=== PATIENT | male | born 1955 | race Caucasian/White ===

== ENCOUNTER 2017-05-08 17:31 | Inpatient (IN) | payer MEDICAID ==
[~2017-05-08] VITALS: Ht 172.7 cm; Wt 70.4 kg
[~2017-05-08 17:31] MED LIST: NO HOME MEDS
[2017-05-08] MEDS ORDERED: ipratropium/albuterol 3ml nebule NEB ONE (18:50)
[2017-05-08] MEDS ORDERED: normal saline 1000ML IV soln IVB ONE (18:50)
[2017-05-08 19:56] LABS: BASOPHILS # (AUTO) 0.1 X10'3 (0-0.2); BASOPHILS % (AUTO) 0.8 % (0-1); EOSINOPHILS # (AUTO) 0.3 X10'3 (0-0.9); EOSINOPHILS % (AUTO) 3.9 % (0-6); HEMOGLOBIN 11.3 g/dl (14.0-17.9); LYMPHOCYTES # (AUTO) 3.5 X10'3 (1.1-4.8); MEAN CORPUSCULAR HEMOGLOBIN 37.8 PG (27.0-31.0); MEAN CORPUSCULAR HGB CONC 34.3 % (33.0-36.5); MEAN CORPUSCULAR VOLUME 110.3 FL (78-98); MEAN PLATELET VOLUME 7.1 FL (7.4-10.4); MONOCYTES # (AUTO) 0.9 X10'3 (0-0.9); MONOCYTES % (AUTO) 10.2 % (2-12); NEUTROPHILS # (AUTO) 3.9 X10'3 (1.8-7.7); NEUTROPHILS % (AUTO) 45.1 % (42-75); PLATELET COUNT 206 X10'3 (140-440); RED BLOOD COUNT 2.99 X10'6 (4.70-6.10); RED CELL DISTRIBUTION WIDTH 17.4 % (11.5-14.5); WHITE BLOOD COUNT 8.8 X10'3 (4.5-11.0)
[2017-05-08 20:05] LABS: INR 1.1 INR; PARTIAL THROMBOPLASTIN TIME 28 SECONDS (22-32); PROTHROMBIN TIME 11.4 SECONDS (9.0-12.0)
[2017-05-08 20:40] LABS: LACTIC SEPSIS 4.1 MMOL/L (0.4-2.0)
[2017-05-08] MEDS ORDERED: cefTRIAXone 1g/NS 100ml IVPB 100 ML IV ONE (20:55)
[2017-05-08] MEDS ORDERED: azithromycin 250mg tablet PO ONE (20:55)
[2017-05-08 20:56] LABS: ALANINE AMINOTRANSFERASE 20 U/L (12-78); ALBUMIN 1.9 G/DL (3.4-5.0); ALBUMIN/GLOBULIN RATIO 0.3 (1.1-1.5); ALKALINE PHOSPHATASE 156 IU/L (46-116); ANION GAP 10 (8-16); ASPARTATE AMINO TRANSFERASE 69 U/L (10-37); BILIRUBIN,TOTAL 1.5 MG/DL (0.1-1.0); BLOOD UREA NITROGEN 6 MG/DL (7-18); BUN/CREATININE RATIO 9.7 (5.4-32.0); CALCIUM 7.8 MG/DL (8.5-10.1); CHLORIDE 95 MMOL/L (99-107); CREATININE 0.62 MG/DL (0.60-1.10); ETHANOL 0.039 GM/DL (0.0-0.010); GLUCOSE 116 MG/DL (70-104); MAGNESIUM 1.1 MG/DL (1.5-2.4); PHOSPHORUS 2.7 MG/DL (2.3-4.5); SODIUM 138 MMOL/L (135-145); TOTAL CARBON DIOXIDE 32.9 MMOL/L (24-32); TOTAL PROTEIN 7.4 G/DL (6.4-8.2); eGFR > 90 ML/MIN
[2017-05-08 21:00] LABS: POTASSIUM 1.7 MMOL/L (3.5-5.1)
[2017-05-08] MEDS: Potassium Cl 40 MEQ in NS 500 ML IV SCH (22:03)
[2017-05-08] MEDS ORDERED: magnesium 2GM in 50ml NS 50 ML IV ONE (22:45)
[2017-05-08] MEDS ORDERED: LORazepam 2 mg/ml vial IV PRN (23:20)
[2017-05-08] MEDS ORDERED: thiamine inj. 100 MG in normal saline 100ml IV soln 100 ML IV ONE (23:20)
[2017-05-08] MEDS ORDERED: magnesium hydroxide 30ml (MOM) UD suspension PO PRN (23:20)
[2017-05-08] MEDS ORDERED: mag hydrox/Alum hydrox/simeth 30ml oral suspension PO PRN (23:20)
[2017-05-08] MEDS ORDERED: potassium Cl 40MEQ/NS 500ml 500 ML IV PRN ×2 (23:20)
[2017-05-08] MEDS ORDERED: ondansetron/PF 4mg/2ml inj IV PRN (23:20)
[2017-05-09] VITALS (7 sets, daily range): BP systolic 95–138; BP diastolic 62–89
[2017-05-09] MEDS ORDERED: normal saline 1000ml 1,000 ML IVB ONE ×2 (01:04→01:09)
[2017-05-09] MEDS ORDERED: magnesium 2GM in 50ml NS 50 ML IV ONE (01:05)
[2017-05-09] MEDS: potassium Cl 20 mEq SR tablet PO PRN ×5 (01:25→21:09)
[2017-05-09] MEDS ORDERED: thiamine 100mg/ml 2ml inj. IV ONE (01:35)
[2017-05-09] MEDS: Potassium Cl 40 MEQ in NS 500 ML IV SCH (02:05)
[2017-05-09] MEDS ORDERED: CLON-529 PO (03:08)
[2017-05-09 06:24] LABS: BASOPHILS % (AUTO) 0.4 % (0-1); EOSINOPHILS # (AUTO) 0.3 X10'3 (0-0.9); EOSINOPHILS % (AUTO) 3.3 % (0-6); HEMATOCRIT 30.9 % (42.0-52.0); HEMOGLOBIN 10.5 g/dl (14.0-17.9); LYMPHOCYTES # (AUTO) 1.2 X10'3 (1.1-4.8); LYMPHOCYTES % (AUTO) 14.8 % (21-51); MEAN CORPUSCULAR HEMOGLOBIN 37.4 PG (27.0-31.0); MEAN CORPUSCULAR HGB CONC 33.9 % (33.0-36.5); MEAN CORPUSCULAR VOLUME 110.3 FL (78-98); MEAN PLATELET VOLUME 7.2 FL (7.4-10.4); MONOCYTES # (AUTO) 0.7 X10'3 (0-0.9); MONOCYTES % (AUTO) 8.7 % (2-12); NEUTROPHILS # (AUTO) 5.9 X10'3 (1.8-7.7); NEUTROPHILS % (AUTO) 72.8 % (42-75); PLATELET COUNT 192 X10'3 (140-440)
[2017-05-09 07:04] LABS: ALANINE AMINOTRANSFERASE 22 U/L (12-78); ALBUMIN 1.8 G/DL (3.4-5.0); ALBUMIN/GLOBULIN RATIO 0.4 (1.1-1.5); ALKALINE PHOSPHATASE 151 IU/L (46-116); ANION GAP 6 (8-16); ASPARTATE AMINO TRANSFERASE 67 U/L (10-37); BLOOD UREA NITROGEN 5 MG/DL (7-18); BUN/CREATININE RATIO 7.7 (5.4-32.0); CALCIUM 7.3 MG/DL (8.5-10.1); CHLORIDE 103 MMOL/L (99-107); CREATININE 0.65 MG/DL (0.60-1.10); GLUCOSE 124 MG/DL (70-104); MAGNESIUM 2.1 MG/DL (1.5-2.4); SODIUM 142 MMOL/L (135-145); TOTAL CARBON DIOXIDE 33.2 MMOL/L (24-32); TOTAL PROTEIN 6.7 G/DL (6.4-8.2); TROPONIN I 0.04 NG/ML (0.0-0.05); eGFR > 90 ML/MIN
[2017-05-09] MEDS: thiamine 100mg tablet PO SCH (07:47)
[2017-05-09] MEDS: folic acid 1mg tablet PO SCH (07:47)
[2017-05-09] MEDS: normal saline 1000ml 1,000 ML IV SCH ×2 (07:47→12:38)
[2017-05-09] MEDS: multivitamins, therapeutics tablet PO SCH (07:47)
[2017-05-09 07:53] LABS: POTASSIUM 2.5 MMOL/L (3.5-5.1)
[2017-05-09] MEDS ORDERED: CefTRIAXone/dextrose 2GM bag 50 ML IV SCH (08:00)
[2017-05-09 11:23] LABS: C DIFF ANTIGEN NEGATIVE (NEGATIVE); C DIFF SPECIMEN=DIARRHEA? ACCEPTABLE; C DIFFICILE TOXINS A&B NEGATIVE (Neg)
[2017-05-09] MEDS: azithromycin/NS 500mg/250ml 250 ML IV SCH (21:07)
[2017-05-10] MEDS: potassium Cl 20 mEq SR tablet PO PRN ×4 (00:52→19:39)
[2017-05-10] MEDS: normal saline 1000ml 1,000 ML IV SCH ×2 (01:58→13:01)
[2017-05-10 03:00] VITALS: BP 128/88
[2017-05-10 06:00] VITALS: BP 139/103
[2017-05-10 06:38] LABS: BASOPHILS % (AUTO) 0.5 % (0-1); EOSINOPHILS # (AUTO) 0.4 X10'3 (0-0.9); EOSINOPHILS % (AUTO) 5.8 % (0-6); HEMATOCRIT 30.6 % (42.0-52.0); HEMOGLOBIN 10.2 g/dl (14.0-17.9); LYMPHOCYTES # (AUTO) 1.6 X10'3 (1.1-4.8); LYMPHOCYTES % (AUTO) 20.6 % (21-51); MEAN CORPUSCULAR HEMOGLOBIN 37.1 PG (27.0-31.0); MEAN CORPUSCULAR HGB CONC 33.2 % (33.0-36.5); MEAN CORPUSCULAR VOLUME 111.5 FL (78-98); MEAN PLATELET VOLUME 7.4 FL (7.4-10.4); MONOCYTES # (AUTO) 0.7 X10'3 (0-0.9); MONOCYTES % (AUTO) 9.7 % (2-12); NEUTROPHILS # (AUTO) 4.8 X10'3 (1.8-7.7); NEUTROPHILS % (AUTO) 63.4 % (42-75); PLATELET COUNT 202 X10'3 (140-440); RED BLOOD COUNT 2.74 X10'6 (4.70-6.10); WHITE BLOOD COUNT 7.6 X10'3 (4.5-11.0)
[2017-05-10 07:42] LABS: ALANINE AMINOTRANSFERASE 29 U/L (12-78); ALBUMIN 1.8 G/DL (3.4-5.0); ALBUMIN/GLOBULIN RATIO 0.4 (1.1-1.5); ALKALINE PHOSPHATASE 154 IU/L (46-116); ANION GAP 8 (8-16); ASPARTATE AMINO TRANSFERASE 87 U/L (10-37); BILIRUBIN,TOTAL 1.4 MG/DL (0.1-1.0); BLOOD UREA NITROGEN 3 MG/DL (7-18); BUN/CREATININE RATIO 4.9 (5.4-32.0); CHLORIDE 107 MMOL/L (99-107); CREATININE 0.61 MG/DL (0.60-1.10); GLUCOSE 98 MG/DL (70-104); MAGNESIUM 1.6 MG/DL (1.5-2.4); POTASSIUM 3.2 MMOL/L (3.5-5.1); SODIUM 144 MMOL/L (135-145); TOTAL CARBON DIOXIDE 29.5 MMOL/L (24-32); TOTAL PROTEIN 6.7 G/DL (6.4-8.2); eGFR > 90 ML/MIN
[2017-05-10 07:58] LABS: ANISOCYTOSIS 1+; PLATELET ESTIMATE NORMAL
[2017-05-10 07:59] LABS: POLYCHROMASIA FEW; TARGET CELLS 2+
[2017-05-10] MEDS: LACTOBACILLUS RHAMNOSUS GG 15 billion unit sprinkle caps PO SCH (09:08)
[2017-05-10] MEDS: thiamine 100mg tablet PO SCH (09:08)
[2017-05-10] MEDS: multivitamins, therapeutics tablet PO SCH (09:08)
[2017-05-10] MEDS: folic acid 1mg tablet PO SCH (09:09)
[2017-05-10] MEDS: CefTRIAXone 2gm/D5W 50ml ADVTG 50 ML IV SCH (09:17)
[2017-05-10] MEDS ORDERED: FLU VACC QS2017-18 36MOS UP/PF 60 MCG/0.5 ML SYRINGE IMVAC ONE (10:00)
[2017-05-10 11:00] VITALS: BP 126/84
[2017-05-10 15:00] VITALS: BP 123/80
[2017-05-10 18:00] VITALS: BP 123/72
[2017-05-10] MEDS ORDERED: albuterol 2.5 MG/3 ML nebule NEB PRN (20:00)
[2017-05-10] MEDS ORDERED: ibuprofen tablet 400 MG TABLET PO ONE (20:15)
[2017-05-10] MEDS: azithromycin/NS 500mg/250ml 250 ML IV SCH (21:23)
[2017-05-10 22:00] VITALS: BP 124/75
[2017-05-11 02:00] VITALS: BP 128/79
[2017-05-11] MEDS: normal saline 1000ml 1,000 ML IV SCH (03:59)
[2017-05-11 06:00] VITALS: BP 126/75
[2017-05-11 06:15] LABS: BASOPHILS # (AUTO) 0.1 X10'3 (0-0.2); BASOPHILS % (AUTO) 0.9 % (0-1); EOSINOPHILS # (AUTO) 0.4 X10'3 (0-0.9); EOSINOPHILS % (AUTO) 5.7 % (0-6); HEMATOCRIT 31.4 % (42.0-52.0); HEMOGLOBIN 10.4 g/dl (14.0-17.9); LYMPHOCYTES # (AUTO) 1.7 X10'3 (1.1-4.8); LYMPHOCYTES % (AUTO) 24.1 % (21-51); MEAN CORPUSCULAR HEMOGLOBIN 37.2 PG (27.0-31.0); MEAN CORPUSCULAR VOLUME 112.6 FL (78-98); MEAN PLATELET VOLUME 7.3 FL (7.4-10.4); MONOCYTES # (AUTO) 0.6 X10'3 (0-0.9); MONOCYTES % (AUTO) 8.5 % (2-12); NEUTROPHILS # (AUTO) 4.4 X10'3 (1.8-7.7); NEUTROPHILS % (AUTO) 60.8 % (42-75); PLATELET COUNT 220 X10'3 (140-440); RED BLOOD COUNT 2.79 X10'6 (4.70-6.10); RED CELL DISTRIBUTION WIDTH 17.8 % (11.5-14.5); WHITE BLOOD COUNT 7.2 X10'3 (4.5-11.0)
[2017-05-11 07:00] LABS: ALANINE AMINOTRANSFERASE 30 U/L (12-78); ALBUMIN 1.8 G/DL (3.4-5.0); ALBUMIN/GLOBULIN RATIO 0.4 (1.1-1.5); ALKALINE PHOSPHATASE 163 IU/L (46-116); ANION GAP 4 (8-16); ASPARTATE AMINO TRANSFERASE 92 U/L (10-37); BILIRUBIN,TOTAL 1.2 MG/DL (0.1-1.0); BLOOD UREA NITROGEN 1 MG/DL (7-18); CALCIUM 7.4 MG/DL (8.5-10.1); CHLORIDE 105 MMOL/L (99-107); GLUCOSE 87 MG/DL (70-104); MAGNESIUM 1.5 MG/DL (1.5-2.4); POTASSIUM 3.2 MMOL/L (3.5-5.1); SODIUM 142 MMOL/L (135-145); TOTAL CARBON DIOXIDE 32.9 MMOL/L (24-32); TOTAL PROTEIN 6.8 G/DL (6.4-8.2); eGFR > 90 ML/MIN
[2017-05-11] MEDS: LACTOBACILLUS RHAMNOSUS GG 15 billion unit sprinkle caps PO SCH (07:55)
[2017-05-11] MEDS: multivitamins, therapeutics tablet PO SCH (07:55)
[2017-05-11] MEDS: folic acid 1mg tablet PO SCH (07:55)
[2017-05-11] MEDS: thiamine 100mg tablet PO SCH (07:55)
[2017-05-11] MEDS: potassium Cl 20 mEq SR tablet PO PRN (07:55)
[2017-05-11] MEDS: CefTRIAXone 2gm/D5W 50ml ADVTG 50 ML IV SCH (07:55)
[2017-05-11 09:08] LABS: ANISOCYTOSIS 2+; HYPOCHROMASIA 1+; PLATELET ESTIMATE NORMAL; POLYCHROMASIA 1+; STOMATOCYTES 1+; TARGET CELLS 1+
[2017-05-11] MEDS ORDERED: potassium Cl 20 mEq SR tablet PO ONE (09:45)
[2017-05-11 11:00] VITALS: BP 118/79
[2017-05-11 15:00] VITALS: BP 109/75
[2017-05-11 18:30] VITALS: BP 128/92
[2017-05-11] MEDS: azithromycin/NS 500mg/250ml 250 ML IV SCH (21:43)
[2017-05-11 22:30] VITALS: BP 127/83
[2017-05-12 02:30] VITALS: BP 107/54
[2017-05-12 06:00] VITALS: BP 118/80
[2017-05-12 06:08] LABS: BASOPHILS # (AUTO) 0.1 X10'3 (0-0.2); BASOPHILS % (AUTO) 0.7 % (0-1); EOSINOPHILS # (AUTO) 0.4 X10'3 (0-0.9); EOSINOPHILS % (AUTO) 5.7 % (0-6); HEMATOCRIT 30.6 % (42.0-52.0); HEMOGLOBIN 10.1 g/dl (14.0-17.9); LYMPHOCYTES # (AUTO) 1.8 X10'3 (1.1-4.8); LYMPHOCYTES % (AUTO) 23.3 % (21-51); MEAN CORPUSCULAR HEMOGLOBIN 36.9 PG (27.0-31.0); MEAN CORPUSCULAR HGB CONC 33.2 % (33.0-36.5); MEAN CORPUSCULAR VOLUME 111.4 FL (78-98); MEAN PLATELET VOLUME 7.1 FL (7.4-10.4); MONOCYTES # (AUTO) 0.8 X10'3 (0-0.9); MONOCYTES % (AUTO) 9.9 % (2-12); NEUTROPHILS # (AUTO) 4.7 X10'3 (1.8-7.7); NEUTROPHILS % (AUTO) 60.4 % (42-75); PLATELET COUNT 231 X10'3 (140-440); RED BLOOD COUNT 2.75 X10'6 (4.70-6.10); RED CELL DISTRIBUTION WIDTH 17.7 % (11.5-14.5); WHITE BLOOD COUNT 7.8 X10'3 (4.5-11.0)
[2017-05-12 06:49] LABS: ALANINE AMINOTRANSFERASE 32 U/L (12-78); ALBUMIN 1.7 G/DL (3.4-5.0); ALBUMIN/GLOBULIN RATIO 0.3 (1.1-1.5); ALKALINE PHOSPHATASE 173 IU/L (46-116); ANION GAP 4 (8-16); ASPARTATE AMINO TRANSFERASE 80 U/L (10-37); BLOOD UREA NITROGEN 2 MG/DL (7-18); BUN/CREATININE RATIO 3.7 (5.4-32.0); CALCIUM 7.4 MG/DL (8.5-10.1); CHLORIDE 104 MMOL/L (99-107); CREATININE 0.54 MG/DL (0.60-1.10); GLUCOSE 88 MG/DL (70-104); MAGNESIUM 1.4 MG/DL (1.5-2.4); POTASSIUM 3.3 MMOL/L (3.5-5.1); SODIUM 139 MMOL/L (135-145); TOTAL CARBON DIOXIDE 31.5 MMOL/L (24-32); TOTAL PROTEIN 6.7 G/DL (6.4-8.2); eGFR > 90 ML/MIN
[2017-05-12 07:37] LABS: ANISOCYTOSIS 2+; PLATELET ESTIMATE NORMAL
[2017-05-12 07:38] LABS: POLYCHROMASIA 2+; STOMATOCYTES 1+
[2017-05-12] MEDS: thiamine 100mg tablet PO SCH (08:01)
[2017-05-12] MEDS: multivitamins, therapeutics tablet PO SCH (08:01)
[2017-05-12] MEDS: folic acid 1mg tablet PO SCH (08:01)
[2017-05-12] MEDS: LACTOBACILLUS RHAMNOSUS GG 15 billion unit sprinkle caps PO SCH (08:01)
[2017-05-12] MEDS: CefTRIAXone 2gm/D5W 50ml ADVTG 50 ML IV SCH (08:06)
[2017-05-12 11:00] VITALS: BP 138/93
[2017-05-12] MEDS ORDERED: THI100T PO (12:13)
[2017-05-12] MEDS ORDERED: LEVO750T21 PO (12:13)
[2017-05-12] MEDS ORDERED: FOLI1TAB16 PO (12:13)
[2017-05-12] MEDS ORDERED: SPIR25TA PO (12:16)
[2017-05-12] MEDS ORDERED: MAGN400C PO (12:20)
[2017-05-12] MEDS ORDERED: POTA20TA19 PO (12:20)
[2017-05-12 15:00] VITALS: BP 135/97
== END 2017-05-12 18:15 | disposition home or self-care (01) | DRG 139 ==
LOC: ER 17:31 → ED HOLD 23:18 → PCU 3S 05-09 00:04
PROVIDERS: ADMIT Internal Medicine; ATTEND Internal Medicine
DX: J18.9 Pneumonia, unspecified organism (principal); G93.41 Metabolic encephalopathy; K70.31 Alcoholic cirrhosis of liver with ascites; E83.42 Hypomagnesemia; E87.6 Hypokalemia; D64.9 Anemia, unspecified; F17.200 Nicotine dependence, unspecified, uncomplicated; I10 Essential (primary) hypertension; M19.90 Unspecified osteoarthritis, unspecified site; Z74.01 Bed confinement status; Z86.73 Personal history of transient ischemic attack (TIA), and cerebral infarction without residual deficits; F10.129 Alcohol abuse with intoxication, unspecified; Z23 Encounter for immunization
CPT/HCPCS: 36415; 70450; 71045; 74018; 80053; 80320; 82140; 82948; 83605; 83735; 84100; 84132; 84443; 84484; 85025; 85610; 85730; 87040; 87045; 87046; 87070; 87324; 87449; 93005; 94640; 94760; 96361; 96365; 97110; 97530; 99285; A4649; A6212; A6213; J0456; J0696; J3411; J3475; J3480; J7030; Q2037

== ENCOUNTER 2020-02-04 18:48 | Emergency (ER) | payer MEDICARE, MEDICAID ==
[~2020-02-04] VITALS: Ht 172.7 cm; Wt 67.8 kg
[~2020-02-04 18:48] MED LIST changes: +ALBU8.5H8 INH; +FOLI0.4T14 PO; +FURO20TA4 PO; +HYDR-4353 PO; +LACT10SO PO; +LEVO100T9 PO; +LORA-269 PO; +MULT-25 PO; -NO HOME MEDS; +POTA10CA44 PO; +PROP10TA10 PO; +thiamine tablet PO
[2020-02-04 19:29] LABS: BASOPHILS % (AUTO) 0.2 % (0-1); EOSINOPHILS # (AUTO) 0.3 X10'3 (0-0.9); EOSINOPHILS % (AUTO) 2.3 % (0-6); HEMATOCRIT 32.4 % (42.0-52.0); LYMPHOCYTES # (AUTO) 1.3 X10'3 (1.1-4.8); LYMPHOCYTES % (AUTO) 11.7 % (21-51); MEAN CORPUSCULAR HEMOGLOBIN 38.8 PG (27.0-31.0); MEAN CORPUSCULAR HGB CONC 33.8 g/dL (33.0-36.5); MEAN CORPUSCULAR VOLUME 114.7 FL (78-98); MEAN PLATELET VOLUME 7.8 FL (7.4-10.4); MONOCYTES # (AUTO) 1.2 X10'3 (0-0.9); MONOCYTES % (AUTO) 10.5 % (2-12); NEUTROPHILS # (AUTO) 8.5 X10'3 (1.8-7.7); NEUTROPHILS % (AUTO) 75.3 % (42-75); PLATELET COUNT 283 X10'3 (140-440); RED BLOOD COUNT 2.82 X10'6 (4.70-6.10); RED CELL DISTRIBUTION WIDTH 15.4 % (11.5-14.5); WHITE BLOOD COUNT 11.3 X10'3 (4.5-11.0)
--- NOTE | 2020-02-04 19:41 | NUR ---
heraclio [phone] on phone. pt permission to speak about medical care. seen here a few weeks ago for similar symptoms. per , hx of stroke with right sided deficit-- jaundice is new as of a few months. she reports that he as prn inhaler and o2 at home last visit had 3 liters drained from abd. discharged with instructions to see md imaging [id number] for maintanence
[2020-02-04 20:04] LABS: ALANINE AMINOTRANSFERASE 28 U/L (12-78); ALBUMIN 2.2 G/DL (3.4-5.0); ALBUMIN/GLOBULIN RATIO 0.4 (1.1-1.5); ALKALINE PHOSPHATASE 408 IU/L (46-116); ANION GAP 6 (8-16); ASPARTATE AMINO TRANSFERASE 51 U/L (10-37); BILIRUBIN,TOTAL 2.2 MG/DL (0.1-1.0); BLOOD UREA NITROGEN 16 MG/DL (7-18); BUN/CREATININE RATIO 19.5 (5.4-32.0); CALCIUM 8.3 MG/DL (8.5-10.1); CHLORIDE 98 MMOL/L (99-107); CREATININE 0.82 MG/DL (0.60-1.10); GLUCOSE 111 MG/DL (70-104); POTASSIUM 3.8 MMOL/L (3.5-5.1); SODIUM 134 MMOL/L (135-145); TOTAL CARBON DIOXIDE 30.1 MMOL/L (24-32); TOTAL PROTEIN 7.2 G/DL (6.4-8.2); eGFR > 90 ML/MIN
--- NOTE | 2020-02-04 20:24 | NUR ---
pt brief changed. noticed significant testicular swelling. pt reports this is a normal finding. addtionally there is discoloration on head of penis. area is very tender to touch, with noted redness.
[2020-02-04 22:45] LABS: PLATELET ESTIMATE NORMAL; STOMATOCYTES 1+; TARGET CELLS 1+
[2020-02-04 22:47] LABS: ANISOCYTOSIS 2+; POLYCHROMASIA FEW
[2020-02-04 22:48] LABS: LARGE PLATELETS FEW
--- NOTE | 2020-02-04 23:51 | NUR ---
PA PERFORMING PARACENTISIS ON PT SO FAR 2 1/2 L HAVE BEEN TAKEN OUT, PT'S BP IS STABLE
--- NOTE | 2020-02-05 00:05 | NUR ---
CLARIFIED WITH LARRY WEBB THAT A STRAIGHT CATH FOR URINE IS OK DUE TO THE APPARENCE AND SWELLING OF THE TOI AREA, HE AGREEDED THAT IT WAS OK TO PROCEEDE
[2020-02-05 00:42] LABS: CLARITY,URINE CLEAR (Clear); COLOR,URINE YELLOW (Yellow); GLUCOSE, URINE NEGATIVE (Neg); KETONES,URINE NEGATIVE (Neg); LEUKOCYTE ESTERASE ,URINE NEGATIVE (Neg); NITRITES, URINE NEGATIVE (Neg); OCCULT BLOOD,URINE NEGATIVE (Neg); PROTEIN,URINE NEGATIVE (Neg); UROBILINOGEN,URINE 0.2 E.U/dL (0.2-1.0)
[2020-02-05 00:44] LABS: UA COLLECTION TYPE STRAIGHT CATH
--- NOTE | 2020-02-05 01:30 | NUR ---
NOTIFIED THAT PT O2 SATURATION IS STABLE ON ROOM AIR AT 94%. CLEARED PT FOR DC. CALLED TO PICK PT UP. SHE STATES THAT SHE WILL BE DRIVING FROM [place].
[2020-02-05 02:39] VITALS: BP 110/55
== END 2020-02-05 02:39 | disposition home or self-care (01) ==
LOC: ER 18:49
DX: K70.31 Alcoholic cirrhosis of liver with ascites (principal); R53.1 Weakness; Z86.73 Personal history of transient ischemic attack (TIA), and cerebral infarction without residual deficits; Z98.890 Other specified postprocedural states; Z72.89 Other problems related to lifestyle; Z79.899 Other long term (current) drug therapy
CPT/HCPCS: 36415; 49083; 71045; 80053; 81003; 83880; 84484; 85008; 85025; 87070; 87075; 93005; 99285

== ENCOUNTER 2020-03-26 14:15 | Emergency (ER) | payer MEDICARE, MEDICAID ==
[~2020-03-26] VITALS: Ht 175.3 cm; Wt 59.4 kg
[~2020-03-26 14:15] MED LIST changes: -HYDR-4353 PO
[2020-03-26] MEDS ORDERED: ipratropium/albuterol 3ml nebule NEB ONE (14:35)
[2020-03-26 15:02] LABS: BASOPHILS # (AUTO) 0.2 X10'3 (0-0.2); BASOPHILS % (AUTO) 1.6 % (0-1); EOSINOPHILS # (AUTO) 0.4 X10'3 (0-0.9); EOSINOPHILS % (AUTO) 3.5 % (0-6); HEMATOCRIT 44.4 % (42.0-52.0); HEMOGLOBIN 14.7 g/dl (14.0-17.9); LYMPHOCYTES # (AUTO) 2.1 X10'3 (1.1-4.8); LYMPHOCYTES % (AUTO) 18.3 % (21-51); MEAN CORPUSCULAR HEMOGLOBIN 35.2 PG (27.0-31.0); MEAN CORPUSCULAR HGB CONC 33.1 g/dL (33.0-36.5); MEAN CORPUSCULAR VOLUME 106.5 FL (78-98); MEAN PLATELET VOLUME 7.4 FL (7.4-10.4); MONOCYTES # (AUTO) 1.8 X10'3 (0-0.9); MONOCYTES % (AUTO) 15.5 % (2-12); NEUTROPHILS # (AUTO) 7.1 X10'3 (1.8-7.7); NEUTROPHILS % (AUTO) 61.1 % (42-75); PLATELET COUNT 189 X10'3 (140-440); RED BLOOD COUNT 4.17 X10'6 (4.70-6.10); RED CELL DISTRIBUTION WIDTH 14.5 % (11.5-14.5); WHITE BLOOD COUNT 11.7 X10'3 (4.5-11.0)
[2020-03-26 15:18] LABS: ALANINE AMINOTRANSFERASE 11 U/L (12-78); ALBUMIN 2.5 G/DL (3.4-5.0); ALBUMIN/GLOBULIN RATIO 0.5 (1.1-1.5); ALKALINE PHOSPHATASE 219 IU/L (46-116); ANION GAP 6 (8-16); ASPARTATE AMINO TRANSFERASE 24 U/L (10-37); BILIRUBIN,TOTAL 1.4 MG/DL (0.1-1.0); BLOOD UREA NITROGEN 14 MG/DL (7-18); BUN/CREATININE RATIO 15.7 (5.4-32.0); CALCIUM 9.1 MG/DL (8.5-10.1); CHLORIDE 98 MMOL/L (99-107); CREATININE 0.89 MG/DL (0.60-1.10); GLUCOSE 102 MG/DL (70-104); POTASSIUM 3.9 MMOL/L (3.5-5.1); SODIUM 137 MMOL/L (135-145); TOTAL PROTEIN 7.9 G/DL (6.4-8.2); eGFR 86 ML/MIN
--- NOTE | 2020-03-26 15:29 | NUR ---
Spoke with pt's family. They are about an hour away, but will come for the pt. There may be a family member that is closer, so they will check with them to see about coming to get the pt.
[2020-03-26 16:49] VITALS: BP 128/79
== END 2020-03-26 16:51 | disposition home or self-care (01) ==
LOC: ER 14:17
DX: J44.9 Chronic obstructive pulmonary disease, unspecified (principal); R18.8 Other ascites; Z86.73 Personal history of transient ischemic attack (TIA), and cerebral infarction without residual deficits; Z79.899 Other long term (current) drug therapy
CPT/HCPCS: 36415; 80053; 85025; 94640; 94760; 99284

== ENCOUNTER 2020-11-13 18:35 | Emergency (ER) | payer MEDICARE, MEDICAID ==
[~2020-11-13] VITALS: Ht 167.6 cm; Wt 75.0 kg
[~2020-11-13 18:35] MED LIST changes: -LACT10SO PO; +LACT10SO3 PO
[2020-11-13] MEDS ORDERED: ipratropium/albuterol 3ml nebule NEB ONE (19:00)
[2020-11-13 19:38] LABS: HEMATOCRIT 38.3 % (42.0-52.0); HEMOGLOBIN 13.4 g/dl (14.0-17.9); MEAN CORPUSCULAR HEMOGLOBIN 40.1 PG (27.0-31.0); MEAN CORPUSCULAR VOLUME 114.7 FL (78-98); MEAN PLATELET VOLUME 7.4 FL (7.4-10.4); PLATELET COUNT 193 X10'3 (140-440); RED BLOOD COUNT 3.34 X10'6 (4.70-6.10); RED CELL DISTRIBUTION WIDTH 16.6 % (11.5-14.5); WHITE BLOOD COUNT 10.3 X10'3 (4.5-11.0)
[2020-11-13 19:49] LABS: ALANINE AMINOTRANSFERASE 20 U/L (12-78); ALBUMIN 2.3 G/DL (3.4-5.0); ALBUMIN/GLOBULIN RATIO 0.4 (1.1-1.5); ALKALINE PHOSPHATASE 255 IU/L (46-116); ANION GAP 11 (8-16); ASPARTATE AMINO TRANSFERASE 64 U/L (10-37); BILIRUBIN,TOTAL 2.9 MG/DL (0.1-1.0); BLOOD UREA NITROGEN 9 MG/DL (7-18); BUN/CREATININE RATIO 12.2 (5.4-32.0); CALCIUM 8.2 MG/DL (8.5-10.1); CHLORIDE 101 MMOL/L (99-107); CREATININE 0.74 MG/DL (0.60-1.10); GLUCOSE 127 MG/DL (70-104); POTASSIUM 3.4 MMOL/L (3.5-5.1); SODIUM 142 MMOL/L (135-145); TOTAL CARBON DIOXIDE 30.2 MMOL/L (24-32); TOTAL PROTEIN 7.9 G/DL (6.4-8.2); eGFR > 90 ML/MIN
[2020-11-13 19:57] LABS: TROPONIN I < 0.04 NG/ML (0.0-0.05)
--- NOTE | 2020-11-13 20:31 | NUR ---
Nancy : [phone]
[2020-11-13 20:58] LABS: ANISOCYTOSIS 1+; PLATELET ESTIMATE NORMAL; TOTAL CELLS COUNTED 100
[2020-11-13] MEDS ORDERED: albumin (human) 25% 100 ML IV solution IV ONE (21:00)
--- NOTE | 2020-11-13 21:00 | NUR ---
Md Lira notified pt's wheezing. At bedside at this time.
[2020-11-13] MEDS ORDERED: AZIT-63 PO (21:39)
[2020-11-13] MEDS ORDERED: PRED20TA PO ×2 (21:39→21:45)
[2020-11-13] MEDS ORDERED: methylPREDNISolone sod succ 125mg/2ml vial IV ONE (21:40)
[2020-11-13] MEDS ORDERED: albuterol 2.5 MG/3 ML nebule CONTNEB PRN (21:40)
[2020-11-13] MEDS ORDERED: azithromycin/NS 500mg/250ml 250 ML IV ONE (21:40)
[2020-11-13] MEDS ORDERED: ONDA4TAB6 PO (21:45)
[2020-11-13] MEDS ORDERED: DOXY100C76 PO (21:45)
--- NOTE | 2020-11-13 22:00 | NUR ---
Per Pankaj, Pt will receive breathing tx and medication prior discharge. Will be reassess then probably discharge.
--- NOTE | 2020-11-13 23:18 | NUR ---
Md Bajwa at bedside and notified pt's saturation 90% r/a. No further intervention.
--- NOTE | 2020-11-13 23:19 | NUR ---
Pharmacist lynnette Childress. Albumin drip over 1 hr no filter Addendum: 11/13/20 at 2319 by PTROTTIER Pharmacist hans Bhakta Albumin drip over 1 hr no filter
[2020-11-14 01:54] VITALS: BP 98/58
== END 2020-11-14 | disposition home or self-care (01) ==
LOC: ER 18:35
DX: J44.1 Chronic obstructive pulmonary disease with (acute) exacerbation (principal); K74.60 Unspecified cirrhosis of liver; K72.90 Hepatic failure, unspecified without coma; Z87.19 Personal history of other diseases of the digestive system; Z86.73 Personal history of transient ischemic attack (TIA), and cerebral infarction without residual deficits; Z87.81 Personal history of (healed) traumatic fracture; Z72.89 Other problems related to lifestyle; Z79.2 Long term (current) use of antibiotics; Z79.899 Other long term (current) drug therapy
CPT/HCPCS: 36415; 80053; 82140; 83880; 84484; 85007; 85025; 85610; 94640; 96365; 96375; 99285; J0456; J2930; P9047; 94760; 96367

== ENCOUNTER 2021-01-03 09:05 | Day surgery (SDC) | payer MEDICARE, MEDICAID ==
[~2021-01-03 09:05] MED LIST changes: +ALBU8.5H17 INH; -ALBU8.5H8 INH; +BUDE10.22 IH; +CEFD300C3 PO; +FURO-150 PO; -FURO20TA4 PO; -LACT10SO3 PO; +LACT10SO32 PO; +LACT1CAP26 PO; -LEVO100T9 PO; -LORA-269 PO; +PANT40TA54 PO; -POTA10CA44 PO; +SPIR25TA5 PO; +THIA50TA10 PO; -thiamine tablet PO
[2021-01-03] MEDS ORDERED: albumin 25% 100mL bottle x 1 IV PRN (09:30)
[2021-01-03 10:00] VITALS: BP 131/79
[2021-01-03 10:15] VITALS: BP 123/71
[2021-01-03] MEDS ORDERED: SPIR25TA5 PO (10:18)
[2021-01-03] MEDS ORDERED: FURO-150 PO (10:18)
[2021-01-03] MEDS ORDERED: LACT10SO57 PO (10:18)
[2021-01-03] MEDS ORDERED: PROP10TA10 PO (10:18)
[2021-01-03] MEDS ORDERED: MULT-1085 PO (10:18)
[2021-01-03] MEDS ORDERED: THIA50TA10 PO (10:18)
[2021-01-03] MEDS ORDERED: LEVO88TA2 PO (10:18)
[2021-01-03 10:30] VITALS: BP 126/70
[2021-01-03 10:45] VITALS: BP 116/73
[2021-01-03 11:00] VITALS: BP 127/66
[2021-01-03 11:15] VITALS: BP 126/67
== END 2021-01-03 11:35 | disposition home or self-care (01) ==
LOC: SSTAY O 09:05
PROVIDERS: ATTEND Radiology Vascular & Interventional Radiology
DX: K70.11 Alcoholic hepatitis with ascites (principal); K72.90 Hepatic failure, unspecified without coma; J44.9 Chronic obstructive pulmonary disease, unspecified; K76.6 Portal hypertension; F10.20 Alcohol dependence, uncomplicated; F17.290 Nicotine dependence, other tobacco product, uncomplicated; Z79.899 Other long term (current) drug therapy
CPT/HCPCS: 49083; P9047

== ENCOUNTER 2021-02-21 08:54 | Day surgery (SDC) | payer MEDICARE, MEDICAID ==
[2021-02-21] VITALS (7 sets, daily range): BP systolic 78–112; BP diastolic 47–59
[~2021-02-21] VITALS: Ht 177.8 cm; Wt 55.0 kg
[~2021-02-21 08:54] MED LIST changes: -CEFD300C3 PO; -LACT10SO32 PO; +LACT10SO57 PO; -LACT1CAP26 PO; +LEVO88TA2 PO; +MULT-1085 PO; -MULT-25 PO; -PANT40TA54 PO
[2021-02-21] MEDS ORDERED: albumin 25% 100mL bottle x 1 IV PRN (09:30)
[2021-02-21] MEDS ORDERED: fentaNYL/PF 50MCG/1 ML 2ML syringe ONE (09:42)
[2021-02-21] MEDS ORDERED: LIDOcaine 1%/PF 5ML 10 MG/ML VIAL ONE (09:42)
[2021-02-21] MEDS ORDERED: midazolam 1 mg/ML 2ml injection ONE (09:42)
[2021-02-21] MEDS ORDERED: LEVO100T PO (09:52)
[2021-02-21] MEDS ORDERED: FURO80TA3 PO (09:52)
[2021-02-21] MEDS ORDERED: POTA20TA19 PO (09:52)
== END 2021-02-21 13:50 | disposition home or self-care (01) ==
LOC: SSTAY O 08:54
PROVIDERS: ATTEND Radiology Vascular & Interventional Radiology
DX: K70.31 Alcoholic cirrhosis of liver with ascites (principal); K72.90 Hepatic failure, unspecified without coma; F17.210 Nicotine dependence, cigarettes, uncomplicated; Z79.899 Other long term (current) drug therapy; Z98.890 Other specified postprocedural states; Z72.89 Other problems related to lifestyle
CPT/HCPCS: 49083; 49418; 76942; J2250; J3010